=== PATIENT | female | born 1955 | race Caucasian/White ===

== ENCOUNTER → 2016-11-07 | Outpatient (CLI) | payer OTHER | LOC: FIMAGING 11:54 | DX: Z12.31 Encounter for screening mammogram for malignant neoplasm of breast (principal) | CPT/HCPCS: G0202 ==

== ENCOUNTER → 2017-11-08 | Outpatient (CLI) | payer OTHER | LOC: FIMAGING 10:32 | PROVIDERS: ATTEND Obstetrics & Gynecology | DX: Z12.31 Encounter for screening mammogram for malignant neoplasm of breast (principal) ==

== ENCOUNTER 2018-02-17 06:13 | Day surgery (SDC) | payer OTHER ==
--- NOTE | 2018-02-15 15:47 | GHP ---
[f rep st] PREOP HISTORY AND PHYSICAL Patient is slated for surgery on 02/17/2018, on the Gynecology service. HISTORY OF PRESENT ILLNESS: The patient is a 62-year-old, G6, P1, A5, who has had recent postmenopau gorge bleeding on hormone replacement. The patient had been on bioidentical hormones, managed by her n aturopath, and has not made any recent changes. However, had an episode of bleeding at the end of Ma y that lasted for 9 days, with intense cramping and flow as heavy as a menses. The bleeding spontane ously stopped, and the patient had an ultrasound on January 07, which shows an endometrial thickness of 1 cm, with an area very bulbous at the fundal portion measuring 19 x 11 mm, that appears vascular and consistent with a polyp. The uterus itself is 8 x 5 x 6 cm, with several small fibroids noted. The ovaries themselves appear normal. The patient was counseled as to the ultrasound findings and the ep isode of bleeding, and encouraged to proceed with hysteroscopy for full evaluation and removal of a p olyp if found. The patient has been counseled as to the risks and benefits, and wants to proceed wit h the procedure. Consent form signed. The patient had a similar issue in 2016, and underwent a hysteroscopy, and was found to have a polyp. This was removed. Pictures from the previous surgery were reviewed, and the patient was advised anisa t possibly the polyp regrew from the base of the previous polyp. The patient does want to proceed, th ough, with definitive evaluation and management. PAST MEDICAL HISTORY: Arthritis, osteoporosis, history of endometriosis, and menorrhagia. External HSV. PAST SURGICAL HISTORY: Tonsils and adenoids removed at age 15. section in 1987. Sinus devin tomas in 1991. Hysteroscopy and laparoscopy, at which time endometriosis diagnosed in 1992. An attem pted hysteroscopy for endometrial ablation, which was unsuccessful, in 2004. Parathyroidectomy in . Hysteroscopy with polypectomy in 2016. PAST OBSTETRIC HISTORY: In 1987, a male delivered at 6 pounds 10 ounces by section due to b reech presentation. Prior to this, the patient had 4 first trimester SABs and one early TAB. ALLERGIES: The patient has no known drug allergies. CURRENT MEDICATIONS: Medical marijuana daily and every night for sleep. Multiple supplements and bi o-identical hormones, managed by her spot machine operator. The patient reports she has a cream compound that c ontains estrogen and testosterone, as well as a capsule for progesterone that she takes at night. Mul tiple vitamins, including vitamin D, fish oil, vitamin B. Cytotec 400 mcg taken on the evening of and the a.m. of 02/17. SOCIAL HISTORY: The patient is , lives with her partner. She is a nonsmoker. No alcohol use . She does use marijuana daily. No other illicit drug use. FAMILY HISTORY: Noncontributory. PHYSICAL EXAM: GENERAL: The patient is a well-developed, well-nourished white female in no physical distress, other than arthritic pain with ambulating. VITAL SIGNS: Weight 122 pounds. Blood pressu re 118/80. The patient is clinically afebrile. HEENT: Shows no thyromegaly. No adenopathy, and th e oropharynx is clear. LUNGS: Clear to auscultation bilaterally. CARDIOVASCULAR: Regular rate and rhythm. ABDOMEN: Soft, nontender. No masses noted. PELVIC: Exam reveals a mobile, nontender smal l uterus. No adnexal masses noted. No cervical polyps noted. EXTREMITIES: Nontender, with no jeanette a. ASSESSMENT: Postmenopausal bleeding, with thickened endometrium. History of endometrial polyps. PLAN: Will proceed with hysteroscopy, with polypectomy if found, on 02/17/2018. The patient will re ceive preoperative antibiotics. Consent form signed, and orders put in the computer. /[id number]/MODL
[2018-02-17] MEDS ORDERED: LR 1,000 ML IV ONE (06:19)
[2018-02-17] MEDS ORDERED: LIDOCAINE 1% 2 ML INJ ID PRN (06:19)
[2018-02-17] MEDS ORDERED: CLINDAMYCIN 900 MG/DEXTROSE 50 ML IV ONE (06:19)
[2018-02-17] MEDS ORDERED: SILVER NITRATE APPLICATOR 1 APPL TP ONE (06:42)
[2018-02-17] MEDS ORDERED: PROPOFOL/EMULSION 500 MG/50 ML BOTTLE IV ONE (07:08)
[2018-02-17] MEDS ORDERED: MIDAZOLAM 2 MG/2 ML VIAL ONE (07:08)
--- NOTE | 2018-02-17 07:13 | PDHPUP ---
History & Physical Update H&P update statement: This history and physical update is based on an assessment of the patient which was completed after admission or registration (within 24 hours), but prior to the surgery/procedure. H&P update: no change in patient's condition since H&P completed
[2018-02-17] MEDS ORDERED: ONDANSETRON 4 MG/2 ML VIAL ONE (07:29)
[2018-02-17] MEDS ORDERED: KETOROLAC 30 MG/1 ML SDV ONE (07:29)
[2018-02-17] MEDS ORDERED: DEXAMETHASONE 4 MG/ML VIAL ONE (07:29)
[2018-02-17] MEDS ORDERED: LIDOCAINE 2% 5 ML SDV ONE (07:29)
[2018-02-17] MEDS ORDERED: METOCLOPRAMIDE 10 MG/2 ML VIAL ONE (07:29)
--- NOTE | 2018-02-17 07:33 | PDANEPAE ---
ANE Past Medical History - Cardiovascular History Hx Hypertension: No Hx Arrhythmias: No Hx Chest Pain: No Hx Coronary Artery / Peripheral Vascular Disease: No Hx CHF / Valvular Disease: No Hx Palpitations: No - Pulmonary History Hx COPD: No Hx Asthma/Reactive Airway Disease: No Hx Recent Upper Respiratory Infection: No Hx Oxygen in Use at Home: No Hx Sleep Apnea: No Sleep Apnea Screening Result - Last Documented: Negative - Neurologic History Hx Cerebrovascular Accident: No Hx Seizures: No Hx Dementia: No - Endocrine History Hx Diabetes: No - Renal History Hx Renal Disorders: No - Liver History Hx Hepatic Disorders: No - Neurological & Psychiatric Hx Hx Neurological and Psychiatric Disorders: No - Cancer History Hx Cancer: No - Congenital Disorder History Hx Congenital Disorders: No - GI History Hx Gastrointestinal Disorders: Yes Gastrointestinal History Comment: gluten intolerance - Other Health History Other Health History: endometriosis. hx miscarriges - Chronic Pain History Chronic Pain: No (joints) - Surgical History Prior Surgeries: TONSILLECTOMY. C SECTION. HYSTEROSCOPY. L SHOULDER. SINUS ENDOSCOPIC. PARATHYROIDECTOMY ANE Review of Systems Review of Systems: - Exercise capacity METS (RN): 6 METS ANE Patient History - Allergies Allergies/Adverse Reactions: No Known Allergies Allergy (Verified 02/10/18 16:11) - Home Medications Home Medications: Herbals/Supplements -Info Only 11/30/15 [Last Taken 02/10/18] Progesterone 11/30/15 [Last Taken 02/16/18 20:00] Estrogens, Conjugated 02/10/18 [Last Taken 02/17/18 05:30] Testosterone 02/10/18 [Last Taken 02/17/18 05:30] - NPO status NPO Since - Liquids (Date): 02/17/18 NPO Since - Liquids (Time): 05:30 NPO Since - Solids (Date): 02/16/18 NPO Since - Solids (Time): 20:00 - Smoking Hx Smoking Status: Former smoker - Family Anes Hx Family Hx Anesthesia Complications: none ANE Labs/Vital Signs - Vital Signs Height: 167.64 cm Weight: 54.431 kg ANE Physical Exam - Airway Neck exam: FROM Mallampati Score: Class 1 Mouth exam: normal dental/mouth exam - Pulmonary Pulmonary: no respiratory distress, no rales or rhonchi, clear to auscultation - Cardiovascular Cardiovascular: regular rate and rhythym, no murmur, rub, or gallop - ASA Status ASA Status: I ANE Anesthesia Plan Anesthesia Plan: GA w LMA
[2018-02-17] MEDS ORDERED: ALBUTEROL 3 ML DEYVIAL IH PRN (07:38)
[2018-02-17] MEDS ORDERED: DEXAMETHASONE 4 MG/ML VIAL IVP PRN (07:38)
[2018-02-17] MEDS ORDERED: ACETAMINOPHEN 500 MG TAB PO PRN (07:38)
[2018-02-17] MEDS ORDERED: ONDANSETRON 4 MG/2 ML VIAL IVP PRN (07:38)
[2018-02-17] MEDS ORDERED: LR 500 ML IV PRN (07:38)
[2018-02-17] MEDS ORDERED: oxyCODONE IR 5 MG TAB PO PRN (07:38)
[2018-02-17] MEDS ORDERED: NALOXONE HCL 0.4 MG/ML INJ IVP PRN (07:38)
[2018-02-17] MEDS ORDERED: HYDROCODONE/APAP 5/325 TAB PO PRN (07:38)
[2018-02-17] MEDS ORDERED: fentaNYL 100 MCG/2 ML INJ IVP PRN (07:38)
--- NOTE | 2018-02-17 08:36 | POSTOPPROG ---
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
--- NOTE | 2018-02-17 09:12 | POSTANESTH ---
Post Anesthetic Evaluation Cardiovascular Status: Normal, Stable, Similar to Pre-Op Cond Respiratory Status: Normal, Stable, Similar to Pre-op Cond. Level of Consciousness/Mental Status: Unconscious Pain Control: Adequate, Prn Tx Ordered Nausea/Vomiting Control: Adequate, Prn Tx Ordered Complications Possibly Related to Anesthesia: None Noted
[2018-02-17 10:10] VITALS: BP 122/36
--- NOTE | 2018-03-24 13:52 | GOP ---
[f rep st] OPERATIVE REPORT DATE OF OPERATION: 02/17/2018 SURGEON: Karlene Bradley MD ANESTHESIA: General endotracheal anesthesia. ANESTHESIOLOGIST: Daisy Mascorro MD PREOPERATIVE DIAGNOSIS: Thickened endometrium and postmenopausal bleeding. POSTOPERATIVE DIAGNOSIS: Thickened endometrium and postmenopausal bleeding, findings consistent with polyp. PROCEDURE PERFORMED: Hysteroscopic polypectomy. FINDINGS: SPECIMENS: The specimen sent to pathology was the endometrial tissue. ESTIMATED BLOOD LOSS: Minimal. INDICATIONS: The patient is a 62-year-old G6, P1, who had postmenopausal bleeding on hormone replace ment. Patient has been on bioidentical hormones, managed by a switching clerk with no recent changes. Sh josseline did have an episode of bleeding at the end of December for 9 days with intense cramping and heavy flow. In January, the patient had an ultrasound showing an endometrial thickness of 1 cm with the bulbous por tion in the fundus measuring 19 x 11 mm consistent with a polyp. The uterus otherwise was normal wit h several fibroids noted. Ovaries were normal. The patient was counseled as to the options for eval uation and management and wanted to proceed with a hysteroscopy. The patient had a similar issue in 2015 and underwent a hysteroscopy and had a polypectomy. The patient took Cytotec prior to the proce dure for cervical softening. The patient was advised as to the risks and benefits of surgery and the consent form signed. DESCRIPTION OF PROCEDURE: The patient was taken to the operating room where following satisfactory g eneral endotracheal anesthesia, the patient was placed in dorsal lithotomy position. The patient had urinated prior to coming to the operating room. The patient had SCDs on her lower extremities for D VT prophylaxis and received a dose of antibiotics prior to surgery. The patient's vagina and perineu m were prepped and the patient draped in the usual sterile manner for hysteroscopy. A sterile speculum was placed within the vagina. A tenaculum was placed on the anterior lip of the c ervix and gentle traction applied. The cervix was slowly dilated up to a #6.5 Hegar dilator. The Tr uClear scope then was introduced without any problems and good visualization was obtained. The endom etrial cavity essentially showed a relatively thin lining. Normal appearing cavity with normal tubal ostia. In the mid body, there was a protuberance from the sidewall on the right posterior wall. Th e morcellator was used and this was directly taken down to flush to the wall. There was no concern f or perforation or any injury to the uterus as this part of the procedure was all under direct observa tion. The tissue was obtained to send off to pathology. With the rest of the lining appearing thin, there was no reason to proceed with more morcellation or a D and C. The fluid deficit of the hyster oscopy was less than 100 mL. The hysteroscope was removed and the tenaculum taken off the anterior l ip and there was minimal bleeding. The patient tolerated the procedure well. She was cleaned off an d taken out of position and then awoke and taken to recovery room in stable condition. Findings from the surgery reveal normal interior cavity with polypoid appearing tissue on the right mid body of th e anterior uterus, which was fully removed down to the level of the cavity wall. No complications. No sign of infection at the time of surgery. /[id number]/MODL
== END 2018-02-17 09:55 | disposition home or self-care (01) ==
LOC: FSGY 06:13
PROVIDERS: ATTEND Obstetrics & Gynecology
PROC: 0UB98ZX Excision of Uterus, Via Natural or Artificial Opening Endoscopic, Diagnostic (ICD-10-PCS; principal; 2018-02-17 07:15)
DX: N84.0 Polyp of corpus uteri (principal); M81.0 Age-related osteoporosis without current pathological fracture
CPT/HCPCS: 58558; C1782; J1100; J1885; J2250; J2405; J2704; J2765

== ENCOUNTER → 2018-10-09 | Outpatient (CLI) | payer OTHER | LOC: FIMAGING 12:45 | PROVIDERS: ATTEND Orthopaedic Surgery | DX: M17.11 Unilateral primary osteoarthritis, right knee (principal) ==

== ENCOUNTER 2018-10-24 08:00 | Observation (INO) | payer OTHER ==
--- NOTE | 2018-10-24 06:15 | PDHPUP ---
History & Physical Update H&P update statement: This history and physical update is based on an assessment of the patient which was completed after admission or registration (within 24 hours), but prior to the surgery/procedure. H&P update: H&P reviewed & patient examined
[~2018-10-24 08:00] MED LIST: ROPIVACAINE 0.2% 80 MG, EPINEPHrine 0.2 MG, KETOROLAC TROMETHAMINE 30 MG in SYRINGE 0 ML IU ONE; TRANEXAMIC ACID 3,000 MG in NS (SYRINGE) 50 ML IRR ONE; TRANEXAMIC ACID 3,000 MG/50 ML BAG IRR ONE; VANCOMYCIN 1 GM VIAL ONE
[2018-10-24] MEDS ORDERED: fentaNYL 100 MCG/2 ML INJ ONE ×2 (08:02→13:43)
[2018-10-24] MEDS ORDERED: ONDANSETRON 4 MG/2 ML VIAL ONE (08:02)
[2018-10-24] MEDS ORDERED: PROPOFOL/EMULSION 500 MG/50 ML BOTTLE IV ONE ×2 (08:02→11:07)
[2018-10-24] MEDS ORDERED: PHENYLEPHRINE HCL 100 MCG/ML SYR ONE (08:02)
[2018-10-24] MEDS ORDERED: LIDOCAINE 2% 100 MG/5 ML SYR ONE (08:02)
[2018-10-24] MEDS ORDERED: BUPIVACAINE 0.25% 30 ML SDV ONE (08:10)
[2018-10-24] MEDS ORDERED: FAMOTIDINE 20 MG TAB PO ONE (08:40)
[2018-10-24] MEDS ORDERED: DEXAMETHASONE 4 MG/ML VIAL IVP ONE (08:40)
[2018-10-24] MEDS ORDERED: ceFAZolin 2 GM/DEXTROSE 100 ML IV ONE (08:40)
[2018-10-24] MEDS ORDERED: ACETAMINOPHEN 325 MG TAB PO ONE (08:40)
[2018-10-24] MEDS ORDERED: LR 1,000 ML IV ONE (08:41)
[2018-10-24] MEDS ORDERED: MIDAZOLAM 2 MG/2 ML VIAL IVP ONE (10:23)
--- NOTE | 2018-10-24 10:23 | PDANEPAE ---
ANE History of Present Illness right knee DJD, here for RTKA ANE Past Medical History - Cardiovascular History Hx Hypertension: No Hx Arrhythmias: No Hx Chest Pain: No Hx Coronary Artery / Peripheral Vascular Disease: No Hx CHF / Valvular Disease: No Hx Palpitations: No - Pulmonary History Hx COPD: No Hx Asthma/Reactive Airway Disease: No Hx Recent Upper Respiratory Infection: No Hx Oxygen in Use at Home: No Hx Sleep Apnea: No Sleep Apnea Screening Result - Last Documented: Negative - Neurologic History Hx Cerebrovascular Accident: No Hx Seizures: No Hx Dementia: No - Endocrine History Hx Diabetes: No - Renal History Hx Renal Disorders: No - Liver History Hx Hepatic Disorders: No - Neurological & Psychiatric Hx Hx Neurological and Psychiatric Disorders: No - Cancer History Hx Cancer: No - Congenital Disorder History Hx Congenital Disorders: No - GI History Hx Gastrointestinal Disorders: Yes Gastrointestinal History Comment: gluten intolerance - Other Health History Other Health History: endometriosis. hx miscarriges - Chronic Pain History Chronic Pain: No (joints) - Surgical History Prior Surgeries: TONSILLECTOMY. C SECTION. HYSTEROSCOPY. L SHOULDER. SINUS ENDOSCOPIC. PARATHYROIDECTOMY ANE Review of Systems Review of Systems: - Exercise capacity METS (RN): 6 METS ANE Patient History - Allergies Allergies/Adverse Reactions: No Known Allergies Allergy (Verified 02/10/18 16:11) - Home Medications Home Medications: Herbals/Supplements -Info Only 1 each PO DAILY 11/30/15 [Last Taken 10/03/18] Progesterone, Micronized [Progesterone] 200 mg PO HS 11/30/15 [Last Taken 1 Week Ago ~10/17/18] Compounded Estrogen Cream 1 dolores TP DAILY 10/07/18 [Last Taken 10/17/18] Tears/Dextran 70/Hypromellose [Natural Balance Tears (*)] 1 drop EACHEYE Q2 PRN 10/07/18 [Last Taken 1 Month Ago ~09/26/18] Vitamin B Complex [Vitamin B Complex (OTC)] 1 each PO DAILY 10/07/18 [Last Taken 2 Weeks Ago ~10/10/18] - NPO status NPO Since - Liquids (Date): 10/24/18 NPO Since - Liquids (Time): 06:30 NPO Since - Solids (Date): 10/23/18 NPO Since - Solids (Time): 19:00 - Smoking Hx Smoking Status: Former smoker - Family Anes Hx Family Hx Anesthesia Complications: none ANE Labs/Vital Signs - Vital Signs Blood Pressure: 107/72 Heart Rate: 50 Respiratory Rate: 16 O2 Sat (%): 97 Height: 167.64 cm Weight: 54.431 kg ANE Physical Exam - Airway Neck exam: FROM Mallampati Score: Class 2 Mouth exam: normal dental/mouth exam - Pulmonary Pulmonary: no respiratory distress, no rales or rhonchi - Cardiovascular Cardiovascular: regular rate and rhythym, no murmur, rub, or gallop - ASA Status ASA Status: II ANE Anesthesia Plan Anesthesia Plan: GA with mask, spinal Regional Anesthesia: single shot NB Total IV Anesthesia: Yes
[2018-10-24] MEDS ORDERED: SCOPOLAMINE HYDROBROMIDE 1 MG/3 DAYS PATCH TD ONE (10:26)
[2018-10-24] MEDS ORDERED: MIDAZOLAM 2 MG/2 ML VIAL ONE (10:26)
[2018-10-24] MEDS ORDERED: SCOPOLAMINE HYDROBROMIDE 1 MG/3 DAYS PATCH TD SCH (10:30)
[2018-10-24] MEDS ORDERED: MEPERIDINE 25 MG/0.5 ML AMP IVP PRN (11:57)
[2018-10-24] MEDS ORDERED: ACETAMINOPHEN 500 MG TAB PO PRN (11:57)
[2018-10-24] MEDS ORDERED: oxyCODONE IR 5 MG TAB PO PRN (11:57)
[2018-10-24] MEDS ORDERED: NALOXONE HCL 0.4 MG/ML INJ IVP PRN (11:57)
[2018-10-24] MEDS ORDERED: DIAZEPAM 5 MG/ML 1 ML SYR IVP PRN (11:57)
[2018-10-24] MEDS ORDERED: LR 500 ML IV PRN (11:57)
[2018-10-24] MEDS ORDERED: HYDROmorphONE/DILAUDID 2 MG/ML INJ IVP PRN (11:57)
[2018-10-24] MEDS ORDERED: PROMETHAZINE HCL 25 MG/ML INJ IVP PRN ×2 (11:57→11:59)
[2018-10-24] MEDS ORDERED: diphenhydrAMINE 25 MG CAP PO PRN (11:59)
[2018-10-24] MEDS ORDERED: POLYETHYLENE GLYCOL 3350 17 GM PKT PO PRN (11:59)
[2018-10-24] MEDS ORDERED: CYCLOBENZAPRINE 10 MG TAB PO PRN (11:59)
[2018-10-24] MEDS ORDERED: BISACODYL 10 MG SUPP PR PRN (11:59)
[2018-10-24] MEDS ORDERED: METOCLOPRAMIDE 10 MG/2 ML VIAL IVP PRN (11:59)
[2018-10-24] MEDS ORDERED: PROMETHAZINE HCL 25 MG SUPPR PR PRN (11:59)
[2018-10-24] MEDS ORDERED: ONDANSETRON 4 MG/2 ML VIAL IVP PRN (11:59)
[2018-10-24] MEDS ORDERED: ONDANSETRON DISINTEGRATING 4 MG TAB PO PRN (11:59)
[2018-10-24] MEDS ORDERED: DIPHENOXYLATE/ATROPINE LOMOTIL 1 TAB PO PRN (11:59)
[2018-10-24] MEDS ORDERED: TEMAZEPAM 15 MG CAP PO PRN (11:59)
[2018-10-24] MEDS ORDERED: ROPIVACAINE HCL 100 MG/20 ML INJ ONE (11:59)
[2018-10-24] MEDS ORDERED: MAGNESIUM HYDROXIDE 30 ML UDCUP PO PRN (11:59)
[2018-10-24] MEDS ORDERED: LACTULOSE 20 GM/30 ML UDCUP PO PRN (11:59)
--- NOTE | 2018-10-24 11:59 | POSTOPPROG ---
Post Op Note Date of Operation: 10/24/18 Surgeon: Leslie Browne Yeast Fermentation Attendant: Sheridan Gage PA-C Anesthesiologist: dr. orantes Anesthesia: GET(General Endotracheal), Spinal, Other (Specify) (adductor canal block) Pre-op Diagnosis: right knee OA Post-op Diagnosis: same Indication: right knee pain Procedure: R TKA robot assisted Findings: severe knee OA Inf/Abcess present in the surg proc area at time of surgery?: No EBL: 50-100
[2018-10-24] MEDS ORDERED: LR 1,000 ML IV SCH (12:00)
--- NOTE | 2018-10-24 12:25 | POSTANESTH ---
Post Anesthetic Evaluation Cardiovascular Status: Normal, Stable Respiratory Status: Normal, Stable Level of Consciousness/Mental Status: Can Participate in Eval, Mildly Sleepy, Arousable Pain Control: Adequate, Prn Tx Ordered Nausea/Vomiting Control: Adequate, Prn Tx Ordered Complications Possibly Related to Anesthesia: None Noted (AC block went well. Moving both feet on arrival to PACU)
[2018-10-24] MEDS ORDERED: TEARS/DEXTRAN 70/HYPROMELLOSE 15 ML OPHT.BTL EACHEYE PRN (12:31)
[2018-10-24] MEDS: fentaNYL 100 MCG/2 ML INJ IVP PRN ×3 (13:44→14:02)
[2018-10-24] MEDS ORDERED: DIAZEPAM 5 MG/ML 1 ML SYR ONE (13:58)
[2018-10-24] MEDS: oxyCODONE IR 5 MG TAB PO PRN ×2 (14:33→20:39)
--- NOTE | 2018-10-24 14:58 | GOP ---
[f rep st] OPERATIVE REPORT DATE OF OPERATION: 10/24/2018 SURGEON: Serenity Browne MD WALLPAPER EMBOSSER HELPER: Sheridan Gage P.A.-C ANESTHESIA: Spinal. PREOPERATIVE DIAGNOSIS: Right knee osteoarthritis. POSTOPERATIVE DIAGNOSIS: Right knee osteoarthritis. PROCEDURE PERFORMED: Right knee arthroplasty with computer navigation, robotic assist. FINDINGS: ESTIMATED BLOOD LOSS: 30 cc. INDICATIONS: The patient is a 63-year-old female with severe and progressive pain and deformity of t he right knee unresponsive to conservative care. The risks and benefits of surgical intervention wer e explained in detail. DESCRIPTION OF PROCEDURE: The patient was brought to the operative room and placed on the table in t he supine position. Spinal anesthesia was induced without difficulty. A pneumatic tourniquet was appl ied about the right proximal thigh, and the leg was prepped and draped in a sterile fashion. The leg palomares was applied. After exsanguination by elevation the tourniquet was inflated to 200 mmHg. Incision was made anterior medial from the tibial tuberosity to a point 2 cm proximal to the superior pole of the patella. Medial parapatellar arthrotomy was carried out from the superior pole of the pa tella and posteriorly in line with the fibers of the Type II VMO. The medial collateral ligament was elevated and the infrapatellar fat pad was resected. The patella was everted and the articular surface was excised. A 32 mm patellar button was placed. Attention was turned first to the distal aspect of the femur. After exposure of the femur, 2 half pi ns were placed for fixation of the femoral array. In a similar fashion, 2 pins were placed anteromed ial on the tibia for fixation of the tibial array. External land marking and registration of the hip center were performed without difficulty. Internal femoral and tibial registration were carried out without difficulty and the femoral and tibial checkpoints were placed and verified for accuracy. Attention was turned to the femur. The foot print for the size 3 femoral component was cut with the saw using the [employer] robotic system and verified for accuracy against the CT based plan. In a similar f ashion, the saw was used to cut the footprint for the size 4 tibial component using the [employer] system an d verified for accuracy against the CT based plan. The tibial articular surface was excised without d ifficulty, followed by the intercondylar box cut. The knee was extended and the remnants of the medial and lateral meniscus were excised. The posterior capsule was injected with ropivacaine, epinephrine and Toradol. A size 4 tibial tray was positioned . Trial reduction was then carried out. There was excellent range of motion, alignment, and stability using the 4 x 9 mm polyethylene. All trials were then removed. The joint was thoroughly irrigated and carefully dried. The prosthetic components were implanted. The permanent 4 x 9 mm polyethylene was placed without difficulty. The tourniquet was deflated and all bleeders were coagulated. The wound was thoroughly irrigated and closed using interrupted sutures of 2-0 Vicryl for the joint capsule. The subcu was closed with 3-0 V icryl and the skin with 4-0 Monocryl. Dermabond and Steri-Strips were applied followed by a compress charley dressing. The patient was then moved from the operating room to the recovery room in good conditi on, having tolerated the procedure well. PATHOLOGY: Severe patellofemoral and lateral osteoarthritis. /[id number]/MODL
[2018-10-24] MEDS: ceFAZolin 2 GM/DEXTROSE 100 ML IV SCH (17:29)
[2018-10-24] MEDS: ACETAMINOPHEN 325 MG TAB PO SCH (17:29)
[2018-10-24] MEDS: FAMOTIDINE 20 MG TAB PO SCH (20:08)
[2018-10-24] MEDS: SENNOSIDES/DOCUSATE SODIUM TAB PO SCH (20:08)
[2018-10-24] MEDS: ASPIRIN 81 MG CHEWABLE TAB PO SCH (20:08)
[2018-10-25] MEDS: oxyCODONE IR 5 MG TAB PO PRN (00:07)
[2018-10-25] MEDS: ACETAMINOPHEN 325 MG TAB PO SCH ×2 (00:08→05:43)
[2018-10-25] MEDS: ceFAZolin 2 GM/DEXTROSE 100 ML IV SCH (02:31)
[2018-10-25 07:45] VITALS: BP 104/68
[2018-10-25] MEDS: SENNOSIDES/DOCUSATE SODIUM TAB PO SCH (09:07)
[2018-10-25] MEDS: FAMOTIDINE 20 MG TAB PO SCH (09:08)
[2018-10-25] MEDS: ASPIRIN 81 MG CHEWABLE TAB PO SCH (09:08)
--- NOTE | 2018-10-25 09:24 | SOAPPROG ---
SOAP Progress Note Assessment/Plan: Assessment: Patient is doing well POD 1 s/p R TKA Pain management: pain is well controlled on oral pain meds. VTE ppx: recommend 81 mg aspirin morning and evening for 4 weeks, cont SEKOU and SCDs Anemia: level is expected initially postop. Asymptomatic. Continue to monitor D/c planning:patient has done much better than anticipated. Patient is stable, BP stable, pain well controlled and patient is eager for discharge to home. December d/c to home today pending release from PT Plan: 10/25/18 09:23 Subjective: patient is doing well today, denies SOB, chest pain and N/V Objective: Vital Signs Temp Pulse Resp BP Pulse Ox 36.4 C 62 16 104/68 97 10/25/18 07:45 10/25/18 07:45 10/25/18 07:45 10/25/18 07:45 10/25/18 07:45 Laboratory Results 10/25/18 04:23 10/24/18 10/25/18 10/26/18 05:59 05:59 05:59 Intake Total 3375 Output Total 2200 Balance 1175 RLE: incision dressing is clean and dry, NVI, +pf/df ICD10 Worksheet Patient Problems: Problems Problem Status Onset Primary localized osteoarthritis of right knee Acute Status post hysteroscopic polypectomy Acute
--- NOTE | 2018-10-25 09:35 | ASMTLACE ---
ANTHONY Length of stay for Answers: 1 day current admission Acuity / Level of Answers: No Care: Did the patient have an inpatient admission? # of Emergency department Answers: 0 visits in the last 6 months Score: 1 Date Signed: 10/25/2018 09:34 AM Electronically Signed By:Ivana Caban RN
--- NOTE | 2018-10-25 15:55 | GDS ---
[f rep st] DISCHARGE SUMMARY ADMISSION DIAGNOSIS: Right knee osteoarthritis. DISCHARGE DIAGNOSIS: Right knee osteoarthritis. PROCEDURE: Right total knee arthroplasty. VTE PROPHYLAXIS: Recommend aspirin 81 mg twice daily for 4 weeks. BRIEF DESCRIPTION OF HOSPITAL STAY: Patient was admitted for an elective joint arthroplasty. The pa tient tolerated the procedure well and has passed physical therapy. The patient was given appropriat e antibiotic prophylaxis and venous thromboembolism prophylaxis. The patient's pain was well control led on oral pain medication, patient was holding down food, and had urinated. Decision was made to d ischarge the patient. The patient was given post-operative prescriptions pre-operatively. PLAN: Follow up as scheduled in Dr. Browne's office in 3 weeks. /[id number]/MODL
[2018-10-27] MEDS ORDERED: PATCH REMOVAL 1 EA PATCH TD SCH (10:24)
== END 2018-10-25 11:25 | disposition home or self-care (01) ==
LOC: F3N 08:01
PROVIDERS: ADMIT Orthopaedic Surgery; ATTEND Orthopaedic Surgery
PROC: 8E0YXBG Computer Assisted Procedure of Lower Extremity, With Computerized Tomography (ICD-10-PCS; principal; 2018-10-24 10:00)
PROC: 8E0Y0CZ Robotic Assisted Procedure of Lower Extremity, Open Approach (ICD-10-PCS; principal; 2018-10-24 10:00)
PROC: 0SRC0JZ Replacement of Right Knee Joint with Synthetic Substitute, Open Approach (ICD-10-PCS; principal; 2018-10-24 10:00)
DX: M17.11 Unilateral primary osteoarthritis, right knee (principal)
CPT/HCPCS: 27447; 73560; 88311; 97110; 97116; 97161; C1776; G0378; J0171; J0690; J1100; J1885; J2001; J2250; J2370; J2405; J2704; J2795; J3010; J3360; J3370

== ENCOUNTER → 2018-12-04 | Outpatient (CLI) | payer OTHER | LOC: FIMAGING 11:34 | PROVIDERS: ATTEND Obstetrics & Gynecology | DX: Z12.31 Encounter for screening mammogram for malignant neoplasm of breast (principal) ==

== ENCOUNTER → 2018-12-10 | Outpatient (CLI) | payer OTHER | LOC: FIMAGING 10:31 | PROVIDERS: ATTEND Obstetrics & Gynecology | DX: Z13.820 Encounter for screening for osteoporosis (principal); Z78.0 Asymptomatic menopausal state ==